=== PATIENT | female | born 1945 | race Two or more races ===

== ENCOUNTER 2016-12-01 11:50 | Emergency (ER) | payer OTHER ==
[2016-12-01 12:19] VITALS: BP 175/66; PULSE 61; TEMP 97; BMI 28.3
--- NOTE | 2016-12-01 13:03 | PDOC ---
History of Present Illness - General Chief Complaint: Injury Stated Complaint: FALL Time Seen by Provider: 12/01/16 13:01 History Source: Patient Exam Limitations: No Limitations - History of Present Illness Initial Comments: CHIEF COMPLAINT: 71 y/o afebrile female with PMH HTN, HLD c/o back and right leg pain s/p fall. HISTORY OF PRESENT ILLNESS: The patient states she fell down 3 stairs at [place] today, at approximately 11:30. She states she first hit her butt and then the back of her head. She states she only has low back and right leg pain. She denies MCKEON, LOC, changes in vision/hearing, bleeding from nose/ears, dizziness, f/c, n/v/d, CP, SOB, abd pain, numbness/tingling in LEs, bowel/ bladder incontinence, seizures. Her daughters deny change in behavior, lethargy. Vital signs on arrival are notable for BP of 175/66. REVIEW OF SYSTEMS: GENERAL/CONSTITUTIONAL: No fever/chills. No weakness. No weight change. HEAD, EYES, EARS, NOSE AND THROAT: No change in vision. No ear pain or discharge. No sore throat. CARDIOVASCULAR: No chest pain or shortness of breath. RESPIRATORY: No cough, wheezing, or hemoptysis. GASTROINTESTINAL: No abd pain, nausea, vomiting, diarrhea. GENITOURINARY: No dysuria, frequency, or change in urination. MUSCULOSKELETAL: +right leg pain. +right low back pain. No neck pain. SKIN: No rash or easy bruising. NEUROLOGIC: No headache, vertigo, loss of consciousness, or loss of sensation. PHYSICAL EXAM: GENERAL: The patient is awake, alert, and fully oriented, in no acute distress. Her movements are slow secondary to low back pain. HEAD: Normal with no signs of trauma. No hematomas. No contusions. No battles signs. NECK: No midline cervical spine TTP or step offs. ENT: Pupils equal, round and reactive to light, extraocular movements intact, sclera anicteric, conjunctiva clear. No raccoon eyes. No hemotympanum b/l. LUNGS: Clear to auscultation bilaterally. Normal excursion. No respiratory distress or use of accessory muscles. CV: RRR, S1/S2, no MRG. Cap refill < 2 sec. ABDOMEN: Soft, non-distended, non-tender even to deep palpation, no hepatomegaly or splenomegaly, no masses. BACK: Some midline lumbar spine TTP in L5 area without step offs, crepitus or obvious deformities. Reproducible pain with palpation of left lumbar paravertebral muscles. EXTREMITIES: Minimal swelling to right knee with TTP of lateral and medial joint lines. Full flexion and extension of right knee. TTP of right mid tibia without deformity or swelling. NEUROLOGICAL: Normal speech, normal gait. CN II-XII grossly intact. PSYCH: Normal mood, normal affect. SKIN: Warm, dry, normal turgor, no rashes or lesions noted. Past History - Past Medical History Allergies/Adverse Reactions: Allergies Allergy/AdvReac Type Severity Reaction Status Date / Time No Known Allergies Allergy Verified 12/01/16 12:19 Home Medications: Ambulatory Orders Tramadol HCl 50 mg PO Q6H #20 tablet MDD 5 12/01/16 Tramadol HCl 50 mg PO Q6H PRN #20 tablet MDD 4 12/01/16 HTN: Yes Hypercholesterolemia: Yes - Psycho/Social/Smoking Cessation Hx Anxiety: No Suicidal Ideation: No Smoking History: Never smoked Have you smoked in the past 12 months: No Information on smoking cessation initiated: No Hx Alcohol Use: No Drug/Substance Use Hx: No Substance Use Type: None *Physical Exam - Vital Signs Last Vital Signs Temp Pulse Resp BP Pulse Ox 97.0 F L 61 18 175/66 100 12/01/16 11:50 12/01/16 11:50 12/01/16 11:50 12/01/16 11:50 12/01/16 11:50 Medical Decision Making - Medical Decision Making A/P: 71 y/o afebrile female with low back pain and right knee pain s/p fall down 3 steps. She denies LOC. Plan is as follows: 1. xray right tib/fib 2. Lumbar spine xray 3. Xray right knee 4. IM toradol The patient states she does feel better after toradol. Xray lumbar spine IMPRESSION: straightening of the lumbar spine and mild degenerative disc disease at L2-L3 level. Heterogeneous attenuation with deformity and cystic like changes in medial aspect of the right superior and inferior pubic ramus for which xray of the pelvis is recommended. Xray right tib/fib IMPRESSION: No acute fracture is seen in the right tibia or fibula. Xray right knee IMPRESSION: Chondrocalcinosis of the right knee. No acute fracture is seen. Xray pelvis IMPRESSION: Chronic right pubic deformity Gave the patient and her daughter all of the results. She said her pain is coming back. Will give PO tramadol. Will discharge to home with rx for tramadol. Informed her and her daughter the tramadol may make her drowsy. Suggested she take it along with Ibuprofen. Instructed her to apply ice to the affected areas and f/u with her PCP within 1 week. Instructed her daughter to have her return to the ER immediately with any worsening or concerning symptoms including MCKEON, intractable vomiting, seizures, changes in behavior. The patient verbalizes understanding of all instructions, has no further questions and is awaiting discharge. *DC/Admit/Observation/Transfer Diagnosis at time of Disposition: Leg pain, right Fall Qualifiers: Encounter type: initial encounter Qualified Code(s): W19.XXXA - Unspecified fall, initial encounter Back pain Qualifiers: Back pain location: low back pain Chronicity: acute Back pain laterality: left Sciatica presence: without sciatica Qualified Code(s): M54.5 - Low back pain Knee pain, right Qualifiers: Chronicity: acute Qualified Code(s): M25.561 - Pain in right knee - Discharge Dispostion Disposition: HOME Condition at time of disposition: Good - Prescriptions Prescriptions: Tramadol HCl 50 mg PO Q6H PRN #20 tablet MDD 4 PRN Reason: Pain Tramadol HCl 50 mg PO Q6H #20 tablet MDD 5 - Referrals Referrals: Solitario Moya [Primary Care Provider] - Darío Mendez MD [Staff Physician] - - Patient Instructions Printed Discharge Instructions: How to Prevent Falls, DI for Low Back Pain, DI for Knee Pain, DI for Leg Pain, How To Perform RICE (Rest, Ice, Compress, Elevate) Additional Instructions: Discharge Instructions: -A prescription for pain medication has been sent to your pharmacy; please take as prescribed; may cause drowsiness -Take 600mg of [id number] Ibuprofen with food every 6 hours WITH the tramadol for pain -Apply ice to the affected areas to help with pain -Follow up with your doctor within 1 week -If no improvement in symptoms within 1 week, please follow up with Dr. Mendez -Return to the ER immediately with any worsening or concerning symptoms. Print Language: MAORI
[2016-12-01] MEDS ORDERED: KETOROLAC TROMETHAMINE 60 MG/2 ML VIAL IM ONE (13:10)
[2016-12-01] MEDS ORDERED: KETOROLAC TROMETHAMINE 60 MG/2 ML VIAL ONE (13:39)
[2016-12-01] MEDS ORDERED: traMADol HCL 50 MG TABLET PO ONE (18:01)
[2016-12-01] MEDS ORDERED: traMADol HCL 50 MG TABLET ONE (18:38)
== END 2016-12-01 18:38 | disposition home or self-care (01) ==
LOC: JER 11:50
PROC: 3E0233Z Introduction of Anti-inflammatory into Muscle, Percutaneous Approach (ICD-10-PCS; principal; 2016-12-01)
DX: M79.604 Pain in right leg (principal); M25.561 Pain in right knee; M54.5 Low back pain; W10.9XXA Fall (on) (from) unspecified stairs and steps, initial encounter; Y93.89 Activity, other specified; Y92.22 Religious institution as the place of occurrence of the external cause; I10 Essential (primary) hypertension; E78.5 Hyperlipidemia, unspecified
CPT/HCPCS: 72100-TC; 72170-TC; 73560-TC-RT; 73590-TC-RT; 99281-25